=== PATIENT | male | born 1970 | race Caucasian/White ===

== ENCOUNTER 2021-01-27 05:35 | Emergency (ER) | payer MEDICAID ==
[~2021-01-27] VITALS: Ht 172.7 cm; Wt 140.0 kg
[2021-01-27 08:47] LABS: CLARITY,URINE CLEAR (Clear); COLOR,URINE YELLOW (Yellow); GLUCOSE, URINE NEGATIVE (Neg); KETONES,URINE 80 mg/dl (Neg); LEUKOCYTE ESTERASE ,URINE NEGATIVE (Neg); NITRITES, URINE NEGATIVE (Neg); OCCULT BLOOD,URINE NEGATIVE (Neg); PH,URINE 7.5 (4.8-8.0); PROTEIN,URINE TRACE mg/dl (Neg); UA COLLECTION TYPE CLN CATCH MIDSTREAM; UROBILINOGEN,URINE 0.2 E.U/dL (0.2-1.0)
[2021-01-27 08:48] LABS: URINE AMPHETAMINE SCREEN POSITIVE (Neg); URINE BARBITUATE SCREEN NEGATIVE (Neg); URINE BENZODIAZEPINES SCREEN NEGATIVE (Neg); URINE CANNABINOID SCREEN NEGATIVE (Neg); URINE COCAINE SCREEN NEGATIVE (Neg); URINE METHADONE SCREEN NEGATIVE (Neg); URINE OPIATE SCREEN NEGATIVE (Neg); URINE PHENCYCLIDINE SCREEN NEGATIVE (Neg)
[2021-01-27 09:03] LABS: BACTERIA,URINE NONE SEEN /HPF (Neg); RBC,URINE 0-2 /HPF (0-2); SQUAMOUS EPITHELIAL CELL,UR NONE SEEN /LPF (FEW); WBC,URINE 0-4 /HPF (0-4)
[2021-01-27 09:49] LABS: BASOPHILS # (AUTO) 0.1 X10'3 (0-0.2); BASOPHILS % (AUTO) 0.9 % (0-1); EOSINOPHILS # (AUTO) 0.1 X10'3 (0-0.9); EOSINOPHILS % (AUTO) 1.3 % (0-6); HEMATOCRIT 36.4 % (42.0-52.0); HEMOGLOBIN 12.7 g/dl (14.0-17.9); LYMPHOCYTES % (AUTO) 27.8 % (21-51); MEAN CORPUSCULAR HEMOGLOBIN 31.5 PG (27.0-31.0); MEAN CORPUSCULAR HGB CONC 34.9 g/dL (33.0-36.5); MEAN CORPUSCULAR VOLUME 90.1 FL (78-98); MEAN PLATELET VOLUME 7.1 FL (7.4-10.4); MONOCYTES # (AUTO) 0.7 X10'3 (0-0.9); MONOCYTES % (AUTO) 9.4 % (2-12); NEUTROPHILS # (AUTO) 4.2 X10'3 (1.8-7.7); NEUTROPHILS % (AUTO) 60.6 % (42-75); PLATELET COUNT 333 X10'3 (140-440); RED BLOOD COUNT 4.04 X10'6 (4.70-6.10); RED CELL DISTRIBUTION WIDTH 13.7 % (11.5-14.5)
[2021-01-27 10:06] LABS: ALANINE AMINOTRANSFERASE 28 U/L (12-78); ALBUMIN 3.6 G/DL (3.4-5.0); ALKALINE PHOSPHATASE 75 IU/L (46-116); ANION GAP 8 (8-16); ASPARTATE AMINO TRANSFERASE 24 U/L (10-37); BLOOD UREA NITROGEN 21 MG/DL (7-18); BUN/CREATININE RATIO 19.6 (5.4-32.0); CALCIUM 8.5 MG/DL (8.5-10.1); CHLORIDE 105 MMOL/L (99-107); CREATININE 1.07 MG/DL (0.60-1.10); GLUCOSE 89 MG/DL (70-104); POTASSIUM 4.1 MMOL/L (3.5-5.1); SODIUM 141 MMOL/L (135-145); TOTAL CARBON DIOXIDE 27.6 MMOL/L (24-32); TOTAL PROTEIN 7.2 G/DL (6.4-8.2); eGFR 73 ML/MIN
[2021-01-27 10:13] LABS: ETHANOL < 0.010 GM/DL (0.0-0.010)
--- NOTE | 2021-01-27 15:32 | NUR ---
Received pt from main ER to ER overflow. Pt cooperative with move and has been polite since being on the unit. Pt states he was out of it and construction workers called an ambulance which brought him here. 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
[2021-01-27] MEDS ORDERED: LORazepam 1 MG tablet PO ONE ×2 (16:55→19:10)
--- NOTE | 2021-01-27 17:00 | NUR ---
Pt c/o, "I'm really tripping out" Pt states he's coming off meth and says he's been drinking alcohol daily for at least 8 months. PA notified of pt anxiety and tremors and ordered ativan which was just given. Pt remains cooperative.
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
--- NOTE | 2021-01-27 23:00 | NUR ---
Pt is sleeping, no s/s of distress noted.
--- NOTE | 2021-01-28 02:41 | NUR ---
pt is sleeping, rr unlabored
--- NOTE | 2021-01-28 04:25 | NUR ---
pt continues to sleep, rr unlabored.
--- NOTE | 2021-01-28 07:57 | NUR ---
Pt sleeping, resp unlabored
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
--- NOTE | 2021-01-28 13:13 | NUR ---
Pt eating lunch
[2021-01-28] MEDS ORDERED: RISP3TAB11 PO (15:20)
[2021-01-28] MEDS ORDERED: BUSP5TAB3 PO (15:20)
[2021-01-28] MEDS: LORazepam 1 MG tablet PO PRN (15:59)
--- NOTE | 2021-01-28 16:00 | NUR ---
Pt watching tv. Restless, given Ativan. Expresses desire to be placed somewhere as "he needs help and it will be better for him and for society"
[2021-01-28] MEDS: busPIRone 5mg tablet PO SCH (20:00)
[2021-01-28] MEDS ORDERED: risperiDONE 0.5mg tablet PO SCH (21:00)
--- NOTE | 2021-01-28 21:17 | NUR ---
Pt is currently sleeping in bed. NAD. Pt displays even and non labored breathing. Will continue to monitor.
--- NOTE | 2021-01-28 23:13 | NUR ---
Gave pt a warm blanket. Pt is now sleeping in bed.
--- NOTE | 2021-01-29 02:55 | NUR ---
Pt is sleeping. NAD.
--- NOTE | 2021-01-29 04:00 | NUR ---
Pt is sleeping. NAD.
--- NOTE | 2021-01-29 05:22 | NUR ---
Pt is sleeping. NAD.
[2021-01-29] MEDS: busPIRone 5mg tablet PO SCH (07:39)
[2021-01-29] MEDS: LORazepam 1 MG tablet PO PRN (07:39)
--- NOTE | 2021-01-29 07:46 | NUR ---
One to one with the patient who was resting quietly on his bed. He stated that he continues to feel suicidal and paranoid. He also stated he his hearing voices that mimick what he is doing. He was given anxiety medications. He is polite. He has not yet set up mental health services here in the [facility].
--- NOTE | 2021-01-29 09:35 | NUR ---
The patient is resting quietly on his bed.
--- NOTE | 2021-01-29 11:30 | NUR ---
The patient appears to be sleeping
--- NOTE | 2021-01-29 12:52 | NUR ---
The patient is awake and making phone calls
--- NOTE | 2021-01-29 13:12 | NUR ---
Received a call from [facility] who report that the [facility] unit is requesting a lipid panel and hgbA1C and Dr Rico notified and he felt the two test were not medically necessary for a medical clearance to a [facility] and [facility] was made aware.
--- NOTE | 2021-01-29 13:20 | NUR ---
Nurse to Nurse with [facility]
--- NOTE | 2021-01-29 13:47 | NUR ---
The patient has been accepted at [facility] and the [facility] sales route driver helper will be here at [id number] to pick him up
[2021-01-29 15:34] VITALS: BP 112/74
== END 2021-01-29 15:37 ==
LOC: ER 05:36
DX: R45.851 Suicidal ideations (principal); Z20.822 Contact with and (suspected) exposure to COVID-19; F17.200 Nicotine dependence, unspecified, uncomplicated; F15.90 Other stimulant use, unspecified, uncomplicated; Z72.89 Other problems related to lifestyle; Z88.8 Allergy status to other drugs, medicaments and biological substances
CPT/HCPCS: 36415; 80053; 80305; 80320; 81001; 84443; 85025; 87635; 99285; C9803